=== PATIENT | male | born 1990 | race Caucasian/White ===

== ENCOUNTER 2018-11-22 15:30 | Emergency (ER) | payer BC, OTHER ==
--- NOTE | 2018-11-22 17:42 | EDM.PDOC ---
ED HPI GENERAL MEDICAL PROBLEM - General Chief Complaint: Lower Extremity Injury/Pain Stated Complaint: LT KNEE INJURY Time Seen by Provider: 11/22/18 16:19 Source of Information: Reports: Patient History Limitations: Reports: No Limitations - History of Present Illness INITIAL COMMENTS - FREE TEXT/NARRATIVE: 28 yo M comes in today for L knee pain and swelling after slipping off of a rock. He thinks the rock slipped under his foot and his body went forward and he heard a "pop"-unsure where came from, but is now having L knee pain. Ankle and Hip have no pain and full ROM. He thinks he may have internally rotated the knee during the slip. He states the pain in his knee is sore, but becomes sharp with movement, especially twisting. He is able to walk on it, but has difficulty straightening the knee. No other concerns at this time. Treatments SKIN TANNER: Reports: Acetaminophen Left Knee Pain Score (Numeric/FACES): 7 - Related Data Allergies Allergy/AdvReac Type Severity Reaction Status Date / Time azithromycin [From Zithromax] Allergy Cannot Verified 11/22/18 15:43 Remember Home Meds: Home Meds . [No Known Home Meds] 11/22/18 [History] Past Medical History - Past Health History Medical/Surgical History: Denies Medical/Surgical History Musculoskeletal History: Reports: Fracture - Past Surgical History HEENT Surgical History: Reports: Oral Surgery Social & Family History - Tobacco Use Smoking Status *Q: Never Smoker Second Hand Smoke Exposure: No - Caffeine Use Caffeine Use: Reports: Soda - Recreational Drug Use Recreational Drug Use: No Review of Systems - Review of Systems Review Of Systems: ROS reveals no pertinent complaints other than HPI. ED EXAM, GENERAL - Physical Exam Exam: See Below Exam Limited By: No Limitations General Appearance: Alert, WD/WN, No Apparent Distress Eye Exam: Bilateral Eye: EOMI, Normal Inspection, PERRL Ears: Normal External Exam, Hearing Grossly Normal Head: Atraumatic, Normocephalic Neck: Normal Inspection, Supple, Non-Tender, Full Range of Motion Back Exam: Normal Inspection, Full Range of Motion, NT Extremities: Non-Tender, No Pedal Edema, Normal Capillary Refill, Joint Swelling (L knee), Limited Range of Motion (L knee s/p injury), Increased Warmth (L knee) Psychiatric: Normal Affect, Normal Mood Skin Exam: Warm, Dry, Intact, No Rash. No: Normal Color (contusion and erythema around L knee) Course - Vital Signs Last Recorded V/S: Last Vital Signs Temp 97.8 F 11/22/18 15:38 Pulse 90 11/22/18 15:38 Resp 16 11/22/18 15:38 BP 145/83 H 11/22/18 15:38 Pulse Ox 100 11/22/18 15:38 - Orders/Labs/Meds Orders: Active Orders 24 hr Category Date Time Status Knee Min 4V Lt [CR] Stat Exams 11/22/18 16:50 Taken DME for Discharge [COMM] Stat Oth 11/22/18 17:40 Ordered - Re-Assessments/Exams Free Text/Narrative Re-Assessment/Exam: 11/22/18 16:50 Xray of L knee taken. Dr. Brooks, Dr. 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 Will send pt home with knee immobilizer, crutches. F/U with ortho if needed. Departure - Departure Time of Disposition: 17:40 Disposition: Home, Self-Care 01 Condition: Fair Clinical Impression: Sprain of knee - Discharge Information *PRESCRIPTION DRUG MONITORING PROGRAM REVIEWED*: Not Applicable *COPY OF PRESCRIPTION DRUG MONITORING REPORT IN PATIENT ANN: Not Applicable Instructions: Crutch Use, Adult, [id number], How to Use a Knee Immobilizer, [id number], Knee Sprain, Adult Referrals: PCP,None [Primary Care Provider] - Forms: ED Department Discharge Additional Instructions: You were seen in the ED today for L knee pain and swelling after slipping off of a rock. Your Xray did not show any fractures. At this time, you are stable to send home with knee immobilizer and crutches. Recommend using crutches and remaining non-weight bearing for 4-5 days. Continue rest, ice, compression with KENDAL wrap as needed, and elevation as well as over the counter ibuprofen for pain and swelling relief. If not better in 14 days, recommend follow up with orthopedic Dr. Brooks, as you likely have a soft tissue/ligament injury. You can make an appointment with him by calling . Please return to ED if new or worsening symptoms. - My Orders Last 24 Hours: My Active Orders 11/22/18 16:50 Knee Min 4V Lt [CR] Stat 11/22/18 17:40 DME for Discharge [COMM] Stat - Assessment/Plan Last 24 Hours: My Active Orders 11/22/18 16:50 Knee Min 4V Lt [CR] Stat 11/22/18 17:40 DME for Discharge [COMM] Stat
--- NOTE | 2018-11-23 08:39 | CR ---
Left knee: AP, oblique and lateral views of the left knee were obtained. Comparison: No previous study. 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 Uncertain if this is acute or old representing a corner fracture involving the lateral and superior patella. Please correlate with the patient's symptoms. No joint effusion is seen. Very slight medial joint space narrowing is noted. Lateral joint space is preserved. No additional abnormality is seen other than soft tissue swelling. Impression: 1. Bipartite patella as noted above. Difficult to exclude acute fracture, please correlate with the patient's symptoms. If further evaluation is needed, MRI could be considered to look for bone marrow edema. 2. Slight medial joint space narrowing. 3. Soft tissue swelling. Diagnostic code #3
== END 2018-11-22 17:54 | disposition home or self-care (01) ==
LOC: JD.ED 15:30
DX: S83.92XA Sprain of unspecified site of left knee, initial encounter (principal); Z88.1 Allergy status to other antibiotic agents; W01.0XXA Fall on same level from slipping, tripping and stumbling without subsequent striking against object, initial encounter
CPT/HCPCS: 73564-26-LT; 73564-LT; 99282; 99283-25